=== PATIENT | female | born 1980 | race Caucasian/White ===

== ENCOUNTER → 2017-07-21 10:44 | Outpatient (CLI) | payer OTHER, SELFPAY ==
--- NOTE | 2017-07-21 10:54 | MRI_ITS ---
STUDY: MR PELVIS WITHOUT CONTRAST REASON FOR EXAM: Female, 36 years old. Right-sided pelvic mass and right-sided pelvic pain. TECHNIQUE: Standardized fat and water weighted pulse sequences were obtained in all 3 orthogonal planes. COMPARISON: CT of the abdomen and pelvis dated May 15, 2017. FINDINGS: Normal urinary bladder. Normal visualized small intestine. Normal visualized colon. The uterus appears to have subserosal lesions near the uterine fundus. The one on the left measures approximately 5.9 mm. The right-sided lesion measures about 4.5 mm. This has bright T2 signal and is apparently isointense to normal uterine myometrium on the T1 weighted images. Patient appears to have an arcuate uterus. There are some mild cystic lesions of the junctional zone. There is some thinning of the myometrium near the fundus. The junctional zone measures approximately 7.1 mm in thickness. There is a cyst arising from the right ovary measuring approximately 1.4 cm. This is bright on the T2-weighted images and dark on the T1 weighted images. The right ovary has a normal sonographic appearance and measures approximately 2.2 x 2.8 x 1.6 cm in size. Left ovary is not visualized. There is no pelvic fluid. There is no pelvic mass lesion or lymphadenopathy. Normal visualized pelvic arteries. Normal osseous structures. Normal abdominal wall. MRI/Pelvis (Routine) IMPRESSION: 1. Thickened junctional zone within the uterus. 2. Apparent focal myometrial loss near the fundus. This may be the result of previous ischemia. 3. Normal MR appearance of the right ovary. 4. Nonvisualization of the left ovary. 5. Small subserosal lesions within the uterus may represent small leiomyomas though the signal characteristics are atypical.. Electronically Signed: Geetha Franz MD at 8:54 EST , Service support ,
== END ==
PROVIDERS: Family Provider Family Medicine; PCP Family Medicine; Visit Provider Obstetrics & Gynecology
DX: R19.00 Intra-abdominal and pelvic swelling, mass and lump, unspecified site (principal); R10.2 Pelvic and perineal pain; N80.8 Other endometriosis
CPT/HCPCS: 72195

== ENCOUNTER → 2019-07-19 17:19 | Outpatient (CLI) | payer OTHER, SELFPAY ==
[2018-11-13 14:27] VITALS: BMI 34.5
[2019-07-23 15:01] LABS: HPV APTIMA, High Risk Negative (Negative)
== END ==
PROVIDERS: PCP Family Medicine; Referring Provider Obstetrics & Gynecology; Visit Provider Obstetrics & Gynecology
DX: Z12.4 Encounter for screening for malignant neoplasm of cervix (principal)
CPT/HCPCS: 87624; 88175; G0145

== ENCOUNTER → 2019-11-25 07:46 | Outpatient (CLI) | payer OTHER, SELFPAY ==
[2018-11-13 14:27] VITALS: BMI 34.5
--- NOTE | 2019-11-25 07:48 | CT_ITS ---
STUDY: CT CHEST WITH CONTRAST REASON FOR EXAM: Female, 39 years old. RECTAL CA SURVEILLANCE 5YR AGO-SURGERY AND CHEMO. Prior VLADIMIR/BSO RADIATION DOSAGE (If Supplied By Facility): CTDIvol = ( 13.42 ) mGy, DLP = ( 1150.34 ) mGycm TECHNIQUE: Transaxial imaging was performed following intravenous administration of Oral and amp; IV Read i-CAT and amp; 100mL Isovue-300. Multiplanar coronal and sagittal images were reformatted. Individualized dose optimization techniques were used for this CT. COMPARISON: 05/15/2017 FINDINGS: The lungs are normal. There is no demonstrated pleural abnormality. Normal heart and pericardium. Normal mediastinum. Normal hilar regions. Normal enhanced pulmonary arteries. Normal aorta arch and descending thoracic aorta. Normal osseous structures. CT/Chest WITH Contrast IMPRESSION: No acute pulmonary process, no suspicious noncalcified mass or nodule. No pleural or pericardial effusion No suspicious axillary, mediastinal, or perihilar adenopathy No interval change Electronically Signed: Kentrell Jessica MD at 8:37 EDT , Service support ,
--- NOTE | 2019-11-25 07:48 | CT_ITS ---
STUDY: CT ABDOMEN AND PELVIS WITH CONTRAST REASON FOR EXAM: Female, 39 years old. RECTAL CA SURVEILLANCE 5YR AGO-SURGERY AND CHEMO. Prior VLADIMIR/BSO RADIATION DOSAGE (If Supplied By Facility): CTDIvol = ( 13.42 ) mGy, DLP = ( 1150.34 ) mGycm TECHNIQUE: Transaxial images were obtained from the dome of the diaphragm to the symphysis pubis without oral contrast. Oral and amp; IV Read i-CAT and amp; 100mL Isovue-300 was administered. Sagittal and coronal images were reconstructed. Individualized dose optimization techniques were used for this CT. COMPARISON: 05/15/2017 FINDINGS: The visualized lung bases are unremarkable. The visualized portions of the heart are within normal limits. There is decreased attenuation of the liver consistent with steatosis. Normal gallbladder and extrahepatic biliary system. Normal spleen. Normal pancreas. Normal bilateral adrenal glands. Normal right kidney. Normal left kidney. Normal visualized stomach. Normal small intestine. Normal colon, surgical anastomosis at the recto sigmoid junction free of complication. The appendix is visualized and appears normal. Appendix best seen on axial image 89 Normal abdominal aorta. Normal inferior vena cava. Normal retroperitoneum. Normal urinary bladder. Normal visualized uterus. No suspicious adnexal mass or free fluid Normal abdominal wall. Normal osseous structures. There is a central disc bulge at L5/S1 CT/Abdomen/Pelvis WITH Contrast IMPRESSION: Diffuse fatty infiltration of the liver, no discrete lesion No suspicious enhancing lesion noted in any solid organ. No suspicious mesenteric or retroperitoneal adenopathy Rectosigmoid anastomosis free of complication No significant interval change since the previous study, no CT evidence of local recurrence or metastasis Electronically Signed: Kentrell Jessica MD at 8:37 EDT , Service support ,
[2019-11-25 08:06] LABS: Absolute Lymphocyte Count 2.47 X10^3/uL (0.83-4.51); Absolute Neutrophil Count 4.8 X10^3/uL (2.0-7.7); Basophil# 0.05 X10^3/uL; Basophil% 0.6 % (0-1); Eosinophil# 0.13 X10^3/uL; Eosinophils% 1.6 % (0-5); Hematocrit 43.6 % (37-47); Hemoglobin 14.4 g/dL (12.0-15.0); Lymphocyte # 2.47 X10^3/ul (4.0); Mean Corpuscular Hgb 31.1 pg (27.0-32.0); Mean Corpuscular Volume 94.2 fL (81-99); Mean Platelet Vol. 10.7 fl (6.2-12.0); Monocyte# 0.72 X10^3/uL; Monocyte% 8.8 % (0-10); NRBC Flagged by Analyzer 0 % (0-5); Neutrophil # 4.82 X10^3/uL (2.7-7.7); Neutrophil % 58.6 % (47-70); Platelet Count 185 K/mm3 (150-450); RBC Distribution Width CV 12.3 % (11.6-14.6); RBC Distribution Width SD 42.1 fl (35.1-43.9); Red Blood Count 4.63 M/mm3 (4.2-5.4); White Blood Count 8.2 K/mm3 (4.4-11.0)
[2019-11-25 08:11] LABS: CREATININE FINGERSTICK 0.7 mg/dL (0.55-1.02)
[2019-11-25 08:18] LABS: ALB/GLOB Ratio 1.1 RATIO (0.9-2.4); AST(SGOT) 69 U/L (15-37); Alanine Aminotransfer ALT/SGPT 161 U/L (13-56); Albumin, Serum 3.8 g/dL (3.2-5.0); Alkaline Phosphatase 59 U/L (45-117); Anion Gap 5 (5-15); BUN 13 mg/dL (7-18); BUN/Creat Ratio 15.7 RATIO (10-20); Calcium,Total 8.9 mg/dL (8.5-10.1); Chloride 105 mmol/L (98-107); Creatinine, Serum 0.83 mg/dL (0.55-1.02); EST Glomerular Filtration Rate 82 mL/min (>60); Est Glom Filt Rate - Afr Amer 99 mL/min (>60); Globulin 3.5 g/dL (2.2-4.2); Glucose 111 mg/dL (74-106); Potassium 3.8 mmol/L (3.5-5.1); Protein, Total 7.3 g/dL (6.4-8.2); Sodium Level 141 mmol/L (136-145)
[2019-11-25 15:52] LABS: Xtra Tube EP Lab EXTRA TUBE
[2019-11-26 04:51] LABS: Carcinoembryonic Antigen 1.5 ng/mL (0.0-4.7)
== END ==
PROVIDERS: PCP Family Medicine; Referring Provider Internal Medicine Medical Oncology; Visit Provider Internal Medicine Medical Oncology
DX: Z85.038 Personal history of other malignant neoplasm of large intestine (principal)
CPT/HCPCS: 36415; 71260; 74177; 80053; 82378; 85025; Q9967